=== PATIENT | female | born 1985 | race Caucasian/White ===

== ENCOUNTER 2018-07-23 20:15 | Emergency (ER) | payer SELFPAY ==
--- NOTE | 2018-07-23 21:34 | EDPHYS ---
Physician Documentation [facility] Name: Brianna Armstrong Age: 33 yrs Sex: Female : 1985 Arrival Date: 07/23/2018 Time: 20:18 Bed 12 Private MD: ED Physician Carmelo Arboleda HPI: 07/23 21:40 This 33 yrs old Female presents to ER via Unassigned with complaints of snw Toothache. 21:40 The patient presents with broken tooth/teeth. The problem is located in the lower right snw first molar (#30). Onset: The symptoms/episode began/occurred gradually, and became worse yesterday. Duration: The symptoms are chronic. Associated signs and symptoms: Pertinent positives: pain. Severity of symptoms: At their worst the symptoms were moderate. The patient has not experienced similar symptoms in the past. The patient has not recently seen a physician. Historical: - Allergies: 23:01 PENICILLINS; jl3 - Immunization history:: Adult Immunizations up to date. - Social history:: Smoking status: Patient/guardian denies using tobacco, never smoked, Patient/guardian denies using street drugs, tobacco products. - Ebola Screening: : No symptoms or risks identified at this time. ROS: 21:39 Constitutional: Negative for fever, chills, and weight loss, Eyes: Negative for injury, snw pain, redness, and discharge, ENT: Negative for injury and discharge, + dental pain Neck: Negative for injury, pain, and swelling, Cardiovascular: Negative for chest pain, palpitations, and edema, Respiratory: Negative for shortness of breath, cough, wheezing, and pleuritic chest pain, Abdomen/GI: Negative for abdominal pain, nausea, vomiting, diarrhea, and constipation, Back: Negative for injury and pain, : Negative for injury, bleeding, discharge, and swelling, MS/Extremity: Negative for injury and deformity, Skin: Negative for injury, rash, and discoloration, Neuro: Negative for headache, weakness, numbness, tingling, and seizure. Exam: 21:38 Constitutional: This is a well developed, well nourished patient who is awake, alert, snw and in no acute distress. Head/Face: Normocephalic, atraumatic. Eyes: Pupils equal round and reactive to light, extra-ocular motions intact. Lids and lashes normal. Conjunctiva and sclera are non-icteric and not injected. Cornea within normal limits. Periorbital areas with no swelling, redness, or edema. Neck: Trachea midline, no thyromegaly or masses palpated, and no cervical lymphadenopathy. Supple, full range of motion without nuchal rigidity, or vertebral point tenderness. No Meningismus. Chest/axilla: Normal chest wall appearance and motion. Nontender with no deformity. No lesions are appreciated. Cardiovascular: Regular rate and rhythm with a normal S1 and S2. No gallops, murmurs, or rubs. Normal PMI, no JVD. No pulse deficits. Respiratory: Lungs have equal breath sounds bilaterally, clear to auscultation and percussion. No rales, rhonchi or wheezes noted. No increased work of breathing, no retractions or nasal flaring. Abdomen/GI: Soft, non-tender, with normal bowel sounds. No distension or tympany. No guarding or rebound. No evidence of tenderness throughout. Back: No spinal tenderness. No costovertebral tenderness. Full range of motion. Skin: Warm, dry with normal turgor. Normal color with no rashes, no lesions, and no evidence of cellulitis. MS/ Extremity: Pulses equal, no cyanosis. Neurovascular intact. Full, normal range of motion. Neuro: Awake and alert, GCS 15, oriented to person, place, time, and situation. Cranial nerves II-XII grossly intact. Motor strength 5/5 in all extremities. Sensory grossly intact. Cerebellar exam normal. Normal gait. Psych: Awake, alert, with orientation to person, place and time. Behavior, mood, and affect are within normal limits. 21:38 ENT: External ear(s): are unremarkable, Ear canal(s): are normal, TM's: are normal, Nose: is normal, Mouth: is normal, Posterior pharynx: is normal, Dental exam: dental caries, that is moderate, specifically in the lower right first molar (#30), used dental cement, continued pain. Vital Signs: 23:02 Pulse 78; Resp 18; Pulse Ox 99% ; Pain 0/10; jl3 MDM: 21:23 Patient medically screened. snw 21:37 Data reviewed: vital signs, nurses notes. Data interpreted: Pulse oximetry: on room air snw is 99 %. Interpretation: normal. Counseling: I had a detailed discussion with the patient and/or guardian regarding: the historical points, exam findings, and any diagnostic results supporting the discharge/admit diagnosis, the need for outpatient follow up, to return to the emergency department if symptoms worsen or persist or if there are any questions or concerns that arise at home. Special discussion: Based on the history and exam findings, there is no indication for further emergent testing or inpatient evaluation. I discussed with the patient/guardian the need to see a dentist for further evaluation of the symptoms. I discussed with the patient/guardian the need to see the primary care provider for further evaluation of the symptoms. Administered Medications: 21:50 Drug: Clindamycin 300 mg Route: PO; jl3 22:57 Follow up: Response: No adverse reaction jl3 21:51 Drug: TORadol 60 mg Route: IM; Site: left gluteus; jl3 22:57 Follow up: Response: No adverse reaction; Pain is decreased jl3 Disposition: 07/24 00:39 Co-signature as Attending Physician, Carmelo Arboleda MD. pk Disposition: 07/23/18 21:34 Discharged to Home. Impression: Dental caries on pit and fissure surface. - Condition is Stable. - Discharge Instructions: Dental Caries, Adult, Dental Pain, Dental Extraction, Care After, Preventive Dental Care, Adult. - Prescriptions for chlorhexidine gluconate 0.12 % Mucous Membrane mouthwash - place 15 milliliter by MUCOUS MEMBRANE route 2 times per day after brushing teeth, swish in mouth for 30 seconds then spit out; 480 milliliter. Clindamycin HCl 300 mg Oral Capsule - take 1 capsule by ORAL route every 6 hours for 10 days; 40 capsule. Diclofenac Sodium 75 mg Oral Tablet Sustained Release - take 1 tablet by ORAL route 2 times per day; 30 tablet. - Medication Reconciliation Form, Thank You Letter, Antibiotic Education, Prescription Opioid Use form. Signatures: Carmelo Arboleda MD MD pkl Monique Bennett, OZIEL-C ARMATURE REPAIRER-Patricio Brunson RN RN jl3 Corrections: (The following items were deleted from the chart) 07/23 23:03 21:34 07/23/2018 21:34 Discharged to Home. Impression: Dental caries on pit and fissure jl3 surface. Condition is Stable. Forms are Medication Reconciliation Form, Thank You Letter, Antibiotic Education, Prescription Opioid Use. Follow up: Emergency Department; When: As needed; Reason: Worsening of condition. snw
[2018-07-23] MEDS ORDERED: CLINDAMYCIN HCL 150 MG CAP ONE (21:48)
[2018-07-23] MEDS ORDERED: KETOROLAC 30 MG/ML INJ ONE (21:48)
--- NOTE | 2018-07-23 23:04 | ER ---
Nurse's Notes [facility] Name: Brianna Armstrong Age: 33 yrs Sex: Female : 1985 Arrival Date: 07/23/2018 Time: 20:18 Bed 12 Private MD: Diagnosis: Dental caries on pit and fissure surface Presentation: 07/23 22:59 Presenting complaint: Patient states: Tooth pain, R. side. Transition of care: patient jl3 was not received from another setting of care. Onset of symptoms was July 21, 2018. Risk Assessment: Do you want to hurt yourself or someone else? Patient reports no desire to harm self or others. Initial Sepsis Screen: Does the patient meet any 2 criteria? No. Patient's initial sepsis screen is negative. Does the patient have a suspected source of infection? No. Patient's initial sepsis screen is negative. Care prior to arrival: None. 22:59 Acuity: SKY 5 jl3 22:59 Method Of Arrival: Ambulatory jl3 Historical: - Allergies: 23:01 PENICILLINS; jl3 - Immunization history:: Adult Immunizations up to date. - Social history:: Smoking status: Patient/guardian denies using tobacco, never smoked, Patient/guardian denies using street drugs, tobacco products. - Ebola Screening: : No symptoms or risks identified at this time. Screenin:58 Abuse screen: none noted. Nutritional screening: No deficits noted. Tuberculosis jl3 screening: No symptoms or risk factors identified. Fall Risk None identified. Assessment: 21:51 General: Appears uncomfortable, Behavior is calm, cooperative. Pain: Complains of pain jl3 in right jaw and right cheek. Neuro: No deficits noted. Cardiovascular: No deficits noted. Respiratory: No deficits noted. GI: No deficits noted. : No deficits noted. EENT: Reports pain in right jaw Pain is 10 out of 10 on a pain scale. since Pt states toothache to R. side began 1 day ago, but there was a "hole in that tooth" for a while. Allergic to Amoxicillin. Derm: No deficits noted. Musculoskeletal: No deficits noted. Vital Signs: 23:02 Pulse 78; Resp 18; Pulse Ox 99% ; Pain 0/10; jl3 ED Course: 20:18 Patient arrived in ED. ds1 20:55 Monique Bennett FNP-C is PHCP. snw 20:55 Carmelo Arboleda MD is Attending Physician. snw 21:33 Patricio Bal, RN is Primary Nurse. jl3 23:00 Triage completed. jl3 23:00 Arm band placed on right wrist. jl3 23:00 No provider procedures requiring assistance completed. Patient did not have IV access jl3 during this emergency room visit. 23:03 Patient has correct armband on for positive identification. jl3 Administered Medications: 21:50 Drug: Clindamycin 300 mg Route: PO; jl3 22:57 Follow up: Response: No adverse reaction jl3 21:51 Drug: TORadol 60 mg Route: IM; Site: left gluteus; jl3 22:57 Follow up: Response: No adverse reaction; Pain is decreased jl3 Outcome: 21:34 Discharge ordered by . snw 23:00 Discharged to home ambulatory. jl3 23:00 Condition: stable 23:00 Discharge instructions given to patient, Prescriptions given X 2. 23:03 Patient left the ED. jl3 Signatures: Monique Bennett FNP-C TOP CUTTER-Lolis Vernon ds1 Patricio Bal, RN RN jl3
== END 2018-07-23 23:03 | disposition home or self-care (01) ==
LOC: ER 20:15
DX: K02.52 Dental caries on pit and fissure surface penetrating into dentin (principal)
CPT/HCPCS: 96372; 99283

== ENCOUNTER 2024-02-18 00:47 | Emergency (ER) | payer OTHER, SELFPAY ==
--- OUTSIDE RECORDS SUMMARY | 2024-02-18 00:50 | XMS REPORT | Continuity of Care Document ---
Author Name Unknown Address [address] [facility] [address] [place] [id number] [facility] Address [address] [facility] 1 [address] [place] [address] Care Team Providers Care Rail Splitter Name Role Phone Marvin FAY, [place]aine Primary Care Physician [phone] ELLIE LI Attending Clinician Unavailable Ellie Li MD Attending Clinician Allergies, Adverse Reactions, Alerts Allergy Name Allergy Type Status Severity Reaction(s) Onset Date Inactive Date Treating Clinician Comments Source Amoxicil arianna Propensi ty to adverse reaction s Active Rash 15 00:00: 00 [facility] AMOXICIL ARIANNA DRUG INGREDI Active Rash 5-15 00:00: 00 [facility] Amoxicil arianna - Oral Propensi ty to adverse reaction to drug Active 9-12 00:00: 00 Dheeraj Collins NO KNOWN ALLERGIE S Drug Class Active [facility] Social History Social Habit Start Date Stop Date Quantity Comments Source Sexual orientation [facility] Sex assigned at 1985 00:00:00 1985 00:00:00 [facility] Smoking Status Start Date Stop Date Source Tobacco smoking consumption unknown [facility] Medications Ordered Medication Name Filled Medication Name Start Date Stop Date Current Medication? Ordering Clinician Indication Dosage Frequency Signature (SIG) Comments Components Source levothyroxi ne 75 mcg tablet -15 11:24: 17 Yes 75ug Take 1 tablet by mouth every morning. [facility] levothyroxi ne 75 mcg tablet 4-24 00:00: 00 Yes 1mcg Dheeraj Collins levothyroxi ne 50 mcg capsule 3-06 00:00: 00 Yes 1mcg Dheeraj Collins TAKE 1 TABLET DAILY. 05-25 00:00: 00 12-20 00:00 :00 No 112 Dheeraj Collins TAKE 1 TABLET TWICE DAILY UNTIL FINISHED. 05-13 00:00: 00 12-20 00:00 :00 No 500 Dheeraj Collins Vital Signs Vital Name Observation Time Observation Value Comments S ource Systolic blood pressure 2024-01-11 16:23:00 112 mm[Hg] [place] [facility] Diastolic blood pressure 2024-01-11 16:23:00 79 mm[Hg] [facility] Heart rate 2024-01-11 16:23:00 64 /min [facility] Respiratory rate 2024-01-11 16:23:00 16 /min [facility] Body height 2024-01-11 16:23:00 157.5 cm [facility] Body weight 2024-01-11 16:23:00 68.493 kg [facility] BMI 2024-01-11 16:23:00 27.62 kg/m2 [facility] Oxygen saturation in Arterial blood by Pulse oximetry 2024-01-11 16:23:00 100 /min [facility] BP Systolic 2023-12-21 09:11:00 120 mm[Hg] Step hen Britney Collins BP Diastolic 2023-12-21 09:11:00 80 mm[Hg] Renato phen Britney Collins Weight Measured 2023-12-21 09:11:00 155.00 pounds Dheeraj Collins Height Measured 2023-12-21 09:11:00 63.00 inches Dheeraj Collins Body Temperature 2023-12-21 09:11:00 97.50 degrees Dheeraj Collins Heart Rate 2023-12-21 09:11:00 81.00 /min Valery en F Dennis Respiratory Rate 2023-12-21 09:11:00 18.00 /min Dheeraj Collins BP Systolic 2023-11-02 15:03:00 120 mm[Hg] Step hen Britney Collins BP Diastolic 2023-11-02 15:03:00 70 mm[Hg] Renato phen Britney Collins Weight Measured 2023-11-02 15:03:00 154.00 pounds Dheeraj F Dennis Height Measured 2023-11-02 15:03:00 63.00 inches Dheeraj F Dennis Body Temperature 2023-11-02 15:03:00 97.90 degrees Dheeraj F Dennis Heart Rate 2023-11-02 15:03:00 90.00 /min Valery en F Dennis Respiratory Rate 2023-11-02 15:03:00 16.00 /min Dheeraj F Dennis BP Systolic 2023-06-24 17:29:00 Step hen F Dennis BP Diastolic 2023-06-24 17:29:00 Renato phen F Dennis Weight Measured 2023-06-24 17:29:00 Dheeraj F Dennis Height Measured 2023-06-24 17:29:00 63.00 inches Dheeraj F Dennis Body Temperature 2023-06-24 17:29:00 Dheeraj F Dennis Heart Rate 2023-06-24 17:29:00 Valery en F Dennis Respiratory Rate 2023-06-24 17:29:00 Dheeraj F Dennis Weight Measured 2023-05-13 09:00:00 160.80 pounds Dheeraj F Dennis Height Measured 2023-05-13 09:00:00 63.00 inches Dheeraj F Dennis Body Temperature 2023-05-13 09:00:00 98.20 degrees Dheeraj F Dennis Heart Rate 2023-05-13 09:00:00 94.00 /min Valery en F Dennis Respiratory Rate 2023-05-13 09:00:00 Dheeraj F Dennis BP Systolic 2023-05-13 09:00:00 123 mm[Hg] Step hen F Dennis BP Diastolic 2023-05-13 09:00:00 85 mm[Hg] Renato phen F Dennis BP Systolic 2023-05-10 09:19:00 124 mm[Hg] Step hen F Dennis BP Diastolic 2023-05-10 09:19:00 89 mm[Hg] Renato phen F Dennis Weight Measured 2023-05-10 09:19:00 159.00 pounds Hdeeraj F Dennis Height Measured 2023-05-10 09:19:00 63.00 inches Dheeraj F Dennis Body Temperature 2023-05-10 09:19:00 98.10 degrees Dheeraj F Dennis Heart Rate 2023-05-10 09:19:00 91.00 /min Valery en F Dennis Respiratory Rate 2023-05-10 09:19:00 18.00 /min Dheeraj Collins Encounters Start Date/Time End Date/Time Encounter Type Admission Type Attending [facility] Care Department Encounter ID Source 2024-05-15 10:30:00 2024-05-15 10:30:00 Outpatient R [facility] [id number] [facility] 2024-02-13 00:00:00 2024-02-13 14:49:22 [facility] [id number] [id number] [facility] 2024-01-11 11:30:00 2024-01-11 12:27:41 Outpatient R LI [facility] [id number] [facility] 2024-01-11 11:30:00 2024-01-11 12:27:41 Office Visit [facility] [place] [facility] [id number] [id number] [id number] [facility] 2023-12-21 09:09:01 2023-12-21 09:09:01 Outpatient [facility] [id number] Dheeraj Collins 2023-12-21 00:00:00 2023-12-21 00:00:00 Outpatient Visit [facility] [id number] Dheeraj Collins 2023-12-14 08:17:12 2023-12-14 08:17:12 Outpatient [facility] [id number] Dheeraj Collins 2023-11-02 15:02:45 2023-11-02 15:02:45 Outpatient [facility] [id number] Dheeraj Collins 2023-06-27 15:48:46 2023-06-27 15:48:46 Outpatient [facility] [id number] Dheeraj Collins 2023-06-24 17:39:31 2023-06-24 17:39:31 Outpatient [facility] [id number] Dheeraj Collins 2023-05-13 08:54:57 2023-05-13 08:54:57 Outpatient [facility] [id number] Dheeraj Collins 2023-05-10 08:58:23 2023-05-10 08:58:23 Outpatient [facility] [id number] Dheeraj Collins Results Test Description Test Time Test Comments Results Result Co mments Source Dheeraj CollinsTHYROID ANTIBODY GROUP (TPO + TG)2023-12-15 00:00:00* Test Item Value Reference Range Interpretation Comme nts THYROID PEROXIDASE AB (test code = 38331) 410 IU/ML THYROGLOBULIN AB (test code = 225508) 513 IU/ML Dheeraj CollinsTHYROID II PROFILE (TU, T4, T7, TSH)2023-06-28 00:00:00* Test Item Value Reference Range Interpretation Comme nts T-UPTAKE (test code = 2817) 39.0 % THYROX. BIND. CAPAC. (test c ode = 02519) 0.8 T4 (THYROXINE) (test code = 2819) 17.1 UG/DL CORRECTED T4 (FTI) (test cod e = 2820) 21.4 UG/DL TSH, THIRD GENERATION (test code = 2821) 0.021 UIU/ML [facility] [id number] 00:00:00* Test Item Value Reference Range Interpretation Comme nts TSH RFLX FT4 AND FT3 (test c ode = 96060) 0.021 UIU/ML [facility] T3 [REFLEX]2023-06-28 00:00:00* Test Item Value Reference Range Interpretation Comme nts FREE T3 (test code = 4273) 6.8 PG/ML Dheeraj CollinsFREE T4 (THYROXINE) [REFLEX]2023-06-28 00:00:00* Test Item Value Reference Range Interpretation Comme nts FREE T4 (THYROXINE) (test co de = 2823) 2.68 NG/DL [facility] R[facility] FT4 AND [id number] 00:00:00* Test Item Value Reference Range Interpretation Comme nts TSH RFLX FT4 AND FT3 (test c ode = 25411) 9.710 UIU/ML Dheeraj CollinsTSH, THIRD [id number] 00:00:00* Test Item Value Reference Range Interpretation Comme nts TSH, THIRD GENERATION (test code = 2821) 9.710 UIU/ML Dheeraj Tan AustinFREE T3 [REFLEX]2023-05-14 00:00:00* Test Item Value Reference Range Interpretation Comme nts FREE T3 (test code = 4273) 2.6 PG/ML Dheeraj Tan OxfordFREE T4 (THYROXINE) [REFLEX]2023-05-14 00:00:00* Test Item Value Reference Range Interpretation Comme nts FREE T4 (THYROXINE) (test co de = 2823) 0.77 NG/DL Dheeraj CollinsPAP TEST, THINPREP, [id number] 16:02:20* Test Item Value Reference Range Interpretation Comme nts SOURCE: (test code = 8001) Cervical/Endoce rvical SLIDES: (test code = 8011) 2 LMP: (test code = 8021) 04/19/2023 SPECIMEN ADEQUACY: (test code = 08174) (NOTE) Satisfactory for evaluation. Endocervical cells/transformation zone component present. INTERPRETATION: (test code = 33676) NILM/NO EPITH. ABNORMALITY;SEE BELOW --- - NEGATIVE FOR INTRAEPITHELIAL LESION OR MALIGNANCY (NILM) ---- OTHER COMMENTS: (test code = 8081) (NOTE) Trichomonas vagi nalis present. Glacial acetic acid added due to blood/mucus in specimen. CHEMICAL MILLING PROCESSOR : (test code = 8101) JUAN Bunch(ASC P),IAC QC TECHNOLOGIST: (test code = 8111) ADY Lu(ASCP) IAC LOCATION: (test code = 10723) (NOTE) Specimens proces sed and interpreted at [facility], [address] [place] [address], , CLIA: [id number] CPT: (test code = 8140) (NOTE) [address]2673 UNLESS OTH ERWISE INDICATED, COMPUTER AIDED AND CHEMICAL MILLING PROCESSOR SCREENING PERFORMED. The Pap test is a screening test with an inherent, but low probability of error. Your patient should be reminded to consult you immediately if she experiences any suspicious signs or symptoms, regardless of her Pap test result. An alternate report format containing images or consolidated prior Pap history is available as applicable. PAP TEST, THINPREP, [id number] 00:00:00* Test Item Value Reference Range Interpretation Comme nts SOURCE: (test code = 8001) Cervical/Endocervical SLIDES: (test code = 8011) 2 LMP: (test code = 8021) 04/19/2023 SPECIMEN ADEQUACY: (test code = 07253) (NOTE) INTERPRETATION: (test code = 89777) NILM/NO EPITH. ABNORMALITY;SEE BELOW OTHER COMMENTS: (test code = 8081) (NOTE) CHEMICAL MILLING PROCESSOR: (test code = 8101) JUAN Bunch(ASCP),IAC QC TECHNOLOGIST: (test code = 8111) ADY Lu(ASCP)IAC LOCATION: (test code = 07968) (NOTE) CPT: (test code = 8140) (NOTE) Dheeraj CollinsTRICHOMONAS, NAAT, [id number] 16:41:37* Test Item Value Reference Range Interpretation Comme nts TRICHOMONAS, NAAT, URINE (test code = 39587) POSITIVE NEGATIVE A Testing is perfo rmed with Sea ANASTASIA 6800/8800 method usingreal-time polymerase chain reaction (PCR) method. UNLESS OTHERWISE INDICATED, ALL TESTING PERFORMED AT [facility] [address] [place] [address] INVESTMENT SALES ASSISTANT: ALLIE QUINTEROS M.D. CLIA NUMBER [id number] [place]. [id number] CT/NG, NAAT, [id number] 13:50:17* Test Item Value Reference Range Interpretation Comme nts CHLAMYDIA, NAAT, URINE (test code = 16529) NEGATIVE NEGATIVE Testing is perfo rmed with Sea ANASTASIA 6800/8800 systems usingreal-time polymerase chain reaction (PCR) method. A negative result does not exclude low level infection, specimensampling error, or collection error. GONORRHEA, NAAT, URINE (test code = 05450) NEGATIVE NEGATIVE Testing is perfo rmed with Sea ANASTASIA 6800/8800 systems usingreal-time polymerase chain reaction (PCR) method. A negative result does not exclude low level infection, specimensampling error, or collection error. HPV HIGH RISK WITH GENOTYPE, [id number] 13:19:23* Test Item Value Reference Range Interpretation Comme nts HPV HIGH RISK INTERP (test code = 56640) NEGATIVE NEGATIVE HPV 16 (test code = 68350) NEGATIVE HPV 18 (test code = 54671) NEGATIVE HPV, HR, OTHER GENOTYPES (test code = 42676) NEGATIVE Testing methodol ogy is real-time PCR utilizing hydrolysis probes with the Sea Anastasia 4800 system. The test individually detects genotypes 16 and 18, as well as the other 12 high risk types (31,33,35,39,45,51,52,56 ,58,59,66,68). The expected result is negative. A negative result does not rule out the presence of HPV not included in the genotype set, a low level of infection or specimen sampling error. UNLESS OTHERWISE INDICATED, ALL TESTING PERFORMED AT [facility] [address] [place] [address] INVESTMENT SALES ASSISTANT: ALLIE QUINTEROS M.D. CLIA NUMBER [id number] [facility] [place]. [id number] VAGINAL PATHOGENS DNA [id number] 12:24:57* Test Item Value Reference Range Interpretation Comme nts CATE SPECIES (test code = 28359) NEGATIVE NEGATIVE G. VAGINALIS (test code = 82270) POSITIVE NEGATIVE A T. VAGINALIS (test code = 04122) POSITIVE NEGATIVE A Note: The BD [facility] ir VPIII Microbial Identification Testis a DNA probe test intended for use in the detectionand identification of Cate species, Gardnerellavaginalis and Trichomonas vaginalis nucleic acid. [id number] 04:55:01* Test Item Value Reference Range Interpretation Comme nts RPR RESULT (test code = 3501) NON-REACTIVE NON-REACTIVE RPR TITER (test code = 3500) NOT INDIC. TITER NOT INDIC. HIV 1/2 4TH GEN, RFLX [id number] 04:20:34* Test Item Value Reference Range Interpretation Comme nts HIV 1/2 4TH GEN, RFLX CONF ( test code = 3514) NON-REACTIVE NON-REACTIVE HEPATITIS PANEL, [id number] 04:20:34* Test Item Value Reference Range Interpretation Comme nts HEPATITIS A IgM (test code = 48752) NON-REACTIVE NON-REACTIVE HEPATITIS B CORE IgM (test code = 4644) NON-REACTIVE NON-REACTIVE HEPATITIS B SURF AG (test code = 2739) NON-REACTIVE NON-REACTIVE HEPATITIS C ANTIBODY (test code = 4675) NON-REACTIVE NON-REACTIVE INTERPRETATION HEPATITIS A: (test code = 2552) (NOTE) Hepatitis A serology shows no evidence of acute hepatitis A. INTERPRETATION HEPATITIS B: (test code = 58727) (NOTE) Hepatitis B serology shows no evidence of acute hepatitis B andno indication of exposure to hepatitis B virus in the previous feliberto eight months. INTERPRETATION HEPATITIS C: (test code = 51501) (NOTE) Hepatitis C serology shows no evidence of exposure to hepatitisC virus at this time. It can take up to 12 months after exposure tothe hepatitis C virus for antibodies to become detectable in the blood in certain patients. HIV 1/2 4TH GEN, RFLX [id number] 00:00:00* Test Item Value Reference Range Interpretation Comme nts HIV 1/2 4TH GEN, RFLX CONF ( test code = 3514) NON-REACTIVE Dheeraj [id number] 00:00:00* Test Item Value Reference Range Interpretation Comme nts RPR RESULT (test code = 3501) NON-REACTIVE RPR TITER (test code = 3500) NOT INDIC. TITER Dheeraj Tan AustinHPV HIGH RISK WITH GENOTYPE, [id number] 00:00:00* Test Item Value Reference Range Interpretation Comme nts HPV HIGH RISK INTERP (test c ode = 40904) NEGATIVE HPV 16 (test code = 11623) NEGATIVE HPV 18 (test code = 27370) NEGATIVE HPV, HR, OTHER GENOTYPES (te st code = 23084) NEGATIVE PDFE (test code = PDFReport) PDF Dheeraj CollinsVAGINAL PATHOGENS DNA [id number] 00:00:00* Test Item Value Reference Range Interpretation Comme nts CATE SPECIES (test code = 50724) NEGATIVE G. VAGINALIS (test code = 01170) POSITIVE T. VAGINALIS (test code = 07084) POSITIVE Dheeraj CollinsACUTE HEPATITIS [id number] 00:00:00* Test Item Value Reference Range Interpretation Comme nts HEPATITIS A IgM (test code = 45621) NON-REACTIVE HEPATITIS B CORE IgM (test c ode = 4644) NON-REACTIVE HEPATITIS B SURF AG (test co de = 2739) NON-REACTIVE HEPATITIS C ANTIBODY (test c ode = 4675) NON-REACTIVE INTERPRETATION HEPATITIS A: (test code = 2552) (NOTE) INTERPRETATION HEPATITIS B: (test code = 37110) (NOTE) INTERPRETATION HEPATITIS C: (test code = 83241) (NOTE) Dheeraj CollinsCT/NG, TMA, [id number] 00:00:00* Test Item Value Reference Range Interpretation Comme nts CHLAMYDIA, NAAT, URINE (test code = 56238) NEGATIVE GONORRHEA, NAAT, URINE (test code = 27321) NEGATIVE Dheeraj CollinsTRICHOMONAS, NAAT, URINE [ADDED]2023-05-11 00:00:00* Test Item Value Reference Range Interpretation Comme nts TRICHOMONAS, NAAT, URINE (te st code = 49439) POSITIVE Dheeraj Collins Notes Date/Time Note Provider Source 2024-02-13 14:49:16 2457-47-49L44:49:16 Awaiting forms 61375-7Pqdkjngfv encounter [id number]:49:22Telephone encounter NoteTXT1.2.840.487899.1.13.104.2.7. 2.161516|[id number] for patient zqxk37086-7TzqlOVKIASXNTKRSpvhofmqk C-CDA narrative [id number] Hurst RNUT[id number] 8UWGKUEMCHOTLCTKAATNPIY2737-65-25N4 4:49:221.2.840.617339.1.72.3.15|1.2 .840.054629.1.13.104.2.7.2.727879_2 [id number] Chato Hurst RN [facility] 2024-02-13 13:34:01 7782-21-72A42:34:01 Pt states that [facility] has faxed forms to the office, regarding additional information to schedule an Ultrasound of the Thyroid. Pt is calling to check the status of this being received and completed. Pls advise. 89844-9Hoevulsdq encounter FlmcTA0102-35-33O68:38:19Telephone encounter NoteTXT1.2.840.977397.1.13.104.2.7. 2.389572|[id number] for patient tdyo97561-9BjtkSURZXMDGMIIOqmfkdtzm C-CDA narrative textUT31 Pierce [id number] 0LNLSMVIZDTNVWBVHZYBFQY3941-97-97C8 3:38:191.2.840.729560.1.72.3.15|1.2 .840.679305.1.13.104.2.7.2.727879_2 [id number] [facility] 2024-01-11 11:30:00 7098-94-51S99:30:00Addended by: ELLIE LI MD on: 02/10/2024 12:43 AMModules accepted: Level of Service 32566-7Zeopopgo SgehzcuwFS6201-58-54I42:43:33Addend um DocumentTXT1.2.840.378665.1.13.104. 2.7.2.392414|[id number] for patient tuuc94486-5YdktOFMJZXNHVODJatzlxhak C-CDA narrative text[address] Je[id number] 1ASVXZLWMMFZYCQKVODMKIG8714-92-06H5 0:43:331.2.840.120416.1.72.3.15|1.2 .840.494400.1.13.104.2.7.2.727879_2 [id number] [facility] 2023-12-21 00:00:00 u/2Yl61zooWGIyG5oPK+vxW0iMlSakxaa82 Nsrj+jYINoS56Mp1Pz7FjVw4rhFkv7912-0 12-20T00:00:00+ + --+| Plan Activity | Plan Date |+ + +| GET OUTSIDE AND WALK- STAY ACTIVE | 2023-05-10 || Diet AND EXERCISE WORK TOGETHER - WALK, SHOP, GO TO THE PARK, GET OUT OF THE | || HOUSE EVERYDAY | |+ + +| Recommend diet high in fruits and vegetables, lean meats, low in fat and | 2023-05-10 || processed sugars. Monitor portion size | |+ + +| Well woman exam without gynecological portion - that was completed a year ago | 2023-05-10 || You can take charge of your health by staying current on well-care visits, | || screenings, and immunizations. Our goal is to help you live a healthier and | || happier life through preventive care. | || Recommend annual blood work: Complete Blood Count, Comprehensive metabolic | || panel, fasting lipid panel and TSH. | || Recommend a Tetanus-diphtheria every 10 years and a Flu vaccine every year | || unless it is contraindicated. | || HIV test one time during adulthood (through age 64) | || Take a daily multivitamin | || Occasionally check your blood pressure and notify the clinic if your blood | || pressure is over 140/80 or lower than 80/60. | || Schedule annual examination | || STD testing | |+ + +| STI panel today in clinic: | 2023-05-10 || Gonorrhea | || Chlamydia | || Trichomoniasis | || Plan pending lab results | || Safe sex education provided | |+ + +| Labs: TSH, Free T3, T4 today | 2023-05-13 || Plan pending results | |+ + +| Positive | 2023-05-13 || Flagyl 500 mg BID x 7 days | || Safe sex practices discussed | |+ + +| BV disease progression education given | 2023-05-13 || Discussed medication usage and side effects | || Start Flagyl 500mg PO BID x 7 days | || Medication sent to the pharmacy | || Patient verbalized understanding of treatment plan | |+ + +| [facility] | 2023-11-02 || diet and exercise | |+ + +| TSH 0.021was on last visit now 11TSH for (12-14-2023) on Levoxyl 50mcg | 2023-11-02 || Levothyroxine 75mcg 1 tab po in AM by itelf with a sip of water | || TPO antibody meam403 - refer Furnace [employer] - JASSI Chavez | || She needs U/S but they want to do their on u/s and labs and will redo any and | || all tests | || f/u 6 week for labs and 7 week for provider u/s of thyroid - no insurance now | |+ + +| get thyroid fixed pulse 81 an this is not of immediate concern and will be | 2023-12-21 || treated when the thyroid is treated | |+ + +63528-6Gw an of TreatmentLNCARE PLANTXTS|SOC-[id number]|2.16.840.1.1 39017.10.20.22.2.10AVAvailable for patient zyitMspxqkvSbaivxuvkFDVXm66 Section NarrativeNARRATIVEFormatted C-CDA narrative textSFAStPrime Healthcare Services2024-04-24T00:00:00 [facility]"
[2024-02-18] MEDS ORDERED: methocarbamoL 750 MG TAB ONE (01:32)
[2024-02-18] MEDS ORDERED: KETOROLAC 30 MG/ML INJ ONE (01:32)
[2024-02-18] MEDS ORDERED: HYDROCODONE/APAP 10/325 TAB ONE (01:32)
[2024-02-18 02:18] LABS: Specific Gravity 1.017 (1.005-1.030)
--- NOTE | 2024-02-18 04:16 | ER ---
Nurse's Notes [facility] Name: Brianna Armstrong Age: 38 yrs Sex: Female : 1985 Arrival Date: 02/18/2024 Time: 00:47 Bed 19 Private MD: Diagnosis: Radiculopathy, cervical region;left arm neuropathic pain Presentation: 02/17 01:14 Chief complaint: Patient states: sharp pain shooting down left side of neck to left vc1 shoulder x 2 weeks. Coronavirus screen: Client denies travel out of the [place] in the last 14 days. At this time, the client does not indicate any symptoms associated with coronavirus-19. Ebola Screen: Patient negative for fever greater than or equal to 101.5 degrees Fahrenheit, and additional compatible Ebola Virus Disease symptoms Patient denies exposure to infectious person. Patient denies travel to an Ebola-affected area in the 21 days before illness onset. No symptoms or risks identified at this time. Initial Sepsis Screen: Does the patient meet any 2 criteria? No. Patient's initial sepsis screen is negative. Does the patient have a suspected source of infection? No. Patient's initial sepsis screen is negative. Risk Assessment: Do you want to hurt yourself or someone else? Patient reports no desire to harm self or others. Onset of symptoms is unknown. 01:14 Method Of Arrival: Ambulatory vc1 01:14 Acuity: SKY 3 vc1 Triage Assessment: 01:20 General: Appears in no apparent distress. uncomfortable, well groomed, well developed, vc1 Behavior is calm, cooperative, appropriate for age. Pain: Complains of pain in left sternocleidomastoid Pain radiates to anterior aspect of left shoulder and left bicep Pain currently is 6 out of 10 on a pain scale. at worst was 8 out of 10 on a pain scale. Quality of pain is described as sharp, shooting, Pain began 2 weeks. EENT: No deficits noted. No signs and/or symptoms were reported regarding the EENT system. Neuro: Level of Consciousness is awake, alert, obeys commands, Oriented to person, place, time, situation, Appropriate for age. Cardiovascular: Capillary refill < 3 seconds Patient's skin is warm and dry. Respiratory: Airway is patent Respiratory effort is even, unlabored, Respiratory pattern is regular, symmetrical. Derm: Skin is intact, is healthy with good turgor, Skin is dry, Skin is normal, Skin temperature is warm. Musculoskeletal: Reports pain in left sternocleidomastoid. 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 Flu vaccine is not up to date. - Infectious Disease History:: Denies. - Social history:: Smoking status: Reported history of juuling and/or vaping. - Family history:: not pertinent. Screenin:30 [facility] ED Fall Risk Assessment (Adult) History of falling in the last 3 months, tm6 including since admission No falls in past 3 months (0 pts) Confusion or Disorientation No (0 pts) Intoxicated or Sedated No (0 pts) Impaired Gait No (0 pts) Mobility Assist Device Used No (0 pt) Altered Elimination No (0 pt) Score/Fall Risk Level 0 - 2 = Low Risk Oriented to surroundings, Maintained a safe environment, Educated pt \T\ family on fall prevention, incl call for assistance when getting out of bed. Abuse screen: Denies threats or abuse. Denies injuries from another. Nutritional screening: No deficits noted. Tuberculosis screening: No symptoms or risk factors identified. Assessment: :30 General: Appears in no apparent distress. uncomfortable, Behavior is calm, cooperative. tm6 Pain: Complains of pain in left arm and neck and left sternocleidomastoid Pain currently is 4 out of 10 on a pain scale. Quality of pain is described as aching, sharp. Neuro: Level of Consciousness is awake, alert, obeys commands, Oriented to person, place, time, situation. Cardiovascular: No deficits noted. Patient's skin is warm and dry. Respiratory: No deficits noted. Airway is patent Respiratory effort is even, unlabored, Respiratory pattern is regular, symmetrical. GI: No signs and/or symptoms were reported involving the gastrointestinal system. Abdomen is flat, non-distended. : No signs and/or symptoms were reported regarding the genitourinary system. EENT: No signs and/or symptoms were reported regarding the EENT system. Derm: No signs and/or symptoms reported regarding the dermatologic system. Musculoskeletal: Reports pain in neck and left sternocleidomastoid since x2 weeks. 04:34 Reassessment: No changes from previously documented assessment. Patient is alert, tm6 oriented x 3, equal unlabored respirations, skin warm/dry/pink. Vital Signs: 01:14 BP 127 / 84; Pulse 69; Resp 18; Temp 97; Pulse Ox 100% ; Weight 68.04 kg; Height 5 ft. vc1 2 in. ; Pain 6/10; 02:51 BP 132 / 107; Pulse 74; Pulse Ox 97% on R/A; Pain 4/10; tm6 04:32 BP 124 / 94; Pulse 61; Resp 19; Temp 96.9(TE); Pulse Ox 100% on R/A; Pain 2/10; tm6 01:14 Body Mass Index 27.44 (68.04 kg, 157.48 cm) vc1 01:14 Pain Scale: Adult vc1 02:51 Pain Scale: Adult tm6 04:32 Pain Scale: Adult tm6 Karmen Coma Score: 04:21 Eye Response: spontaneous(4). Motor Response: obeys commands(6). Verbal Response: sp4 oriented(5). Total: 15. NIH Stroke Scale Scores: 04:21 NIHSS Score: 0 sp4 ED Course: 00:59 Patient arrived in ED. gm2 01:03 Nathan Wahl MD is Attending Physician. sp4 01:17 Triage completed. vc1 01:19 Arm band placed on right wrist. vc1 01:30 Ronit Lyles RN is Primary Nurse. vc1 01:30 Patient has correct armband on for positive identification. Bed in low position. Call tm6 light in reach. Side rails up X 1. Provided Education on: use of call booker, wait times . Client placed on continuous cardiac and pulse oximetry monitoring. NIBP monitoring applied. Pulse ox on. NIBP on. Door closed. Noise minimized. 02:04 CT C Spine In Process Unspecified. EDMS 04:34 No provider procedures requiring assistance completed. Patient did not have IV access tm6 during this emergency room visit. Administered Medications: 01:47 Drug: [place] PO 10 mg-325 mg 1 tabs PO once Route: PO; tm6 01:47 Drug: Methocarbamol PO 1500 mg PO once Route: PO; tm6 01:47 Drug: Ketorolac IM 60 mg IM once Route: IM; Site: right deltoid; tm6 04:32 Drug: predniSONE PO 60 mg PO once Route: PO; tm6 Medication: 01:30 VIS not applicable for this client. tm6 Outcome: 04:16 Discharge ordered by . sp4 04:34 Discharged to home ambulatory, with family, tm6 04:34 Condition: stable 04:34 Discharge instructions given to patient, family, Instructed on discharge instructions, follow up and referral plans. medication usage, Demonstrated understanding of instructions, follow-up care, medications, Prescriptions given X 4, 04:34 Patient left the ED. tm6 NIH Stroke Scale - NIH Stroke Score Date: 02/18/2024 Time: 04:21 Total Score = 0 10. Dysarthria (speech clarity - read or repeat words) - 0(Normal) 11. Extinction and Inattention (visual/tactile/auditory/spatial/personal) - 0(No abnormality) 1a. Level of Consciousness (LOC) - 0(Alert) 1b. Level of Consciousness (LOC) (Month \T\ Age) - 0(Both) 1c. LOC Commands (Open \T\ Closes Eyes/Sash Repairer) - 0(Both) 2. Best Gaze (Lateral Gaze Paresis) - 0(Normal) 3. Visual Field Loss - 0(No visual loss) 4. Facial Palsy - 0(Normal) 5a. Left Arm: Motor (10-second hold) - 0(No drift) 5b. Right Arm: Motor (10-second hold) - 0(No drift) 6a. Left Leg: Motor (5-second hold - always test supine) - 0(No drift) 6b. Right Leg: Motor (5-second hold - always test supine) - 0(No drift) 7. Limb Ataxia (finger/nose \T\ heel/cox - test with eyes open) - 0(Absent) 8. Sensory Loss (pinprick arms/legs/face) - 0(Normal) 9. Best Language: Aphasia (description/naming/reading) - 0(No aphasia) Initials: sp4 Signatures: Dispatcher [employer] EDMS Ronit Lyles RN RN vc1 Nathan Wahl MD MD sp4 Pili Eddy gm2 Wilian Sommer, TARA RN tm6
--- NOTE | 2024-02-18 04:16 | EDPHYS ---
Physician Documentation [facility] Name: Brianna Armstrong Age: 38 yrs Sex: Female : 1985 Arrival Date: 02/18/2024 Time: 00:47 Bed 19 Private MD: ED Physician Nathan Wahl HPI: 02/17 01:03 This 38 yrs old Other Race Female presents to ER via Unassigned with complaints of sp4 Shoulder Pain. 04:21 38-year-old female presents with 2 weeks of the left shoulder left arm and left neck sp4 pain . There is some reported numbness to the posterior left arm. . Patient denied any injury. Denies repetitive arm movements for. . 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 Flu vaccine is not up to date. - Infectious Disease History:: Denies. - Social history:: Smoking status: Reported history of juuling and/or vaping. - Family history:: not pertinent. ROS: 04:21 Constitutional: Negative for fever, chills, and weight loss, positive left neck pain sp4 left arm pain left shoulder pain. Positive posterior left arm numbness. 04:21 All other systems are negative, Exam: 04:21 Constitutional: This is a well developed, well nourished patient who is awake, alert, sp4 and in no acute distress. Head/Face: Normocephalic, atraumatic. Eyes: Pupils equal round and reactive to light, extra-ocular motions intact. Lids and lashes normal. Conjunctiva and sclera are not injected. Cornea within normal limits. Periorbital areas with no swelling, redness, or edema. ENT: Nares patent. No nasal discharge, no septal abnormalities noted. Tympanic membranes are normal and external auditory canals are clear. Oropharynx with no redness, swelling, or masses, exudates, or evidence of obstruction, uvula midline. Mucous membranes moist. Neck: Trachea midline, no thyromegaly or masses palpated, and no cervical lymphadenopathy. Supple, full range of motion without nuchal rigidity, or vertebral point tenderness. Chest/axilla: Normal chest wall appearance and motion. Nontender with no deformity. No lesions are appreciated. Cardiovascular: Regular rate and rhythm with a normal S1 and S2. No gallops, murmurs, or rubs. Normal PMI, no JVD. No pulse deficits. Respiratory: Lungs have equal breath sounds bilaterally, clear to auscultation and percussion. No rales, rhonchi or wheezes noted. No increased work of breathing, no retractions or nasal flaring. Abdomen/GI: Soft, with normal bowel sounds. No distension or tympany. No guarding or rebound. No evidence of tenderness throughout. Back: No spinal tenderness. No costovertebral tenderness. Skin: Warm, dry with normal turgor. Normal color with no rashes, no lesions, and no evidence of cellulitis. MS/ Extremity: Pulses equal, no cyanosis. Neurovascular intact. Full, normal range of motion. Neuro: Awake and alert, GCS 15, oriented to person, place, time, and situation. Cranial nerves II-XII grossly intact. Motor strength 5/5 in all extremities. Sensory grossly intact. Psych: Awake, alert, with orientation to person, place and time. Behavior, mood, and affect are within normal limits Vital Signs: 01:14 BP 127 / 84; Pulse 69; Resp 18; Temp 97; Pulse Ox 100% ; Weight 68.04 kg; Height 5 ft. vc1 2 in. ; Pain 6/10; 02:51 BP 132 / 107; Pulse 74; Pulse Ox 97% on R/A; Pain 4/10; tm6 04:32 BP 124 / 94; Pulse 61; Resp 19; Temp 96.9(TE); Pulse Ox 100% on R/A; Pain 2/10; tm6 01:14 Body Mass Index 27.44 (68.04 kg, 157.48 cm) vc1 01:14 Pain Scale: Adult vc1 02:51 Pain Scale: Adult tm6 04:32 Pain Scale: Adult tm6 NIH Stroke Scale Scores: 04:21 NIHSS Score: 0 sp4 Karmen Coma Score: 04:21 Eye Response: spontaneous(4). Motor Response: obeys commands(6). Verbal Response: sp4 oriented(5). Total: 15. MDM: 01:04 Patient medically screened. sp4 04:13 ED course: EXAM DESCRIPTION: C Spine Wo Con 02/18/2024 3:12 AM CDT CLINICAL HISTORY: 38 sp4 years, Female, left arm pain , neck pain COMPARISON: None PROCEDURE: Multiple axial CT images through the cervical spine were obtained at 2 mm slice thickness at 2 mm interval reconstruction. In addition 2-D multiplanar reformats and the sagittal coronal plane were performed and reviewed. An individualized dose optimization technique, Automated Exposure Control, was utilized for the performed procedure. FINDINGS: Curvature: The lordotic curve is preserved. The alignment, vertebral body heights, and disc spaces are normal. Bones: There is no evidence of fracture or subluxation. Discs: There are no significant degenerative changes and/or spondylosis. There is no evidence for significant spinal canal narrowing and/or stenosis. Joints: The uncovertebral joints demonstrate unremarkable. Soft tissues: There is no prevertebral soft tissue swelling. Sagittal coronal reformatted images demonstrate no subluxation or bony abnormalities. Lung apices: The lung apices demonstrate to be within normal limits. IMPRESSION: Normal CT scan of the cervical spine. Electronically signed by: Patricio Virk MD 02/18/2024 03:12 AM. 04:25 Differential diagnosis: glenoid fracture, DJD, tendonitis. Data reviewed: vital signs, sp4 nurses notes, radiologic studies, CT scan. ED course: By exam patient has intensification for pain with neck movement. Is consistent with cervical radiculopathy without left arm weakness. This time patient is stable for discharge home. Recommend outpatient C-spine MRI without contrast which can be ordered by green chain puller. Will also provide contact for neurosurgeon in [place] Dr. Roberto Rios for consultation and office visit. . 02/17 01:04 Order name: Test, Urine sp4 02/17 01:23 Order name: CT C Spine sp4 Administered Medications: :47 Drug: [place] PO 10 mg-325 mg 1 tabs PO once Route: PO; tm6 01:47 Drug: Methocarbamol PO 1500 mg PO once Route: PO; tm6 01:47 Drug: Ketorolac IM 60 mg IM once Route: IM; Site: right deltoid; tm6 04:32 Drug: predniSONE PO 60 mg PO once Route: PO; tm6 Disposition Summary: 02/18/24 04:16 Discharge Ordered Notes: Location: Home sp4 Problem: new sp4 Symptoms: have improved sp4 Condition: Stable sp4 Diagnosis - Radiculopathy, cervical region sp4 - left arm neuropathic pain sp4 Followup: sp4 - With: Private Physician - When: 7 - 10 days - Reason: Recheck today's complaints Discharge Instructions: - Discharge Summary Sheet sp4 - Cervical Radiculopathy sp4 Forms: - Patient Portal Instructions sp4 Prescriptions: - naproxen 500 mg Oral tablet - take 1 tablet ORAL route every 12 hours PRN pain; 30 tablet; Refills: 0, sp4 Product Selection Permitted - Tramadol 50 mg Oral tablet - take 1 tablet ORAL route every 8 hours as needed; 20 tablet; Refills: 0, sp4 Product Selection Permitted - Prednisone 20 mg Oral Tablet - take 2 tablets ORAL route once daily for 5 days; 10 tablet; Refills: 0, Product sp4 Selection Permitted - methocarbamol 750 mg Oral tablet - take 2 tablets ORAL route every 8 hours for 2 days PRN pain; 60 tablet; sp4 Refills: 0, Product Selection Permitted NIH Stroke Scale - NIH Stroke Score Date: 02/18/2024 Time: 04:21 Total Score = 0 10. Dysarthria (speech clarity - read or repeat words) - 0(Normal) 11. Extinction and Inattention (visual/tactile/auditory/spatial/personal) - 0(No abnormality) 1a. Level of Consciousness (LOC) - 0(Alert) 1b. Level of Consciousness (LOC) (Month \T\ Age) - 0(Both) 1c. LOC Commands (Open \T\ Closes Eyes/Baling Press Operator) - 0(Both) 2. Best Gaze (Lateral Gaze Paresis) - 0(Normal) 3. Visual Field Loss - 0(No visual loss) 4. Facial Palsy - 0(Normal) 5a. Left Arm: Motor (10-second hold) - 0(No drift) 5b. Right Arm: Motor (10-second hold) - 0(No drift) 6a. Left Leg: Motor (5-second hold - always test supine) - 0(No drift) 6b. Right Leg: Motor (5-second hold - always test supine) - 0(No drift) 7. Limb Ataxia (finger/nose \T\ heel/cox - test with eyes open) - 0(Absent) 8. Sensory Loss (pinprick arms/legs/face) - 0(Normal) 9. Best Language: Aphasia (description/naming/reading) - 0(No aphasia) Initials: sp4 Signatures: Dispatcher [employer] Ronit Glover RN RN vc1 Nathan Wahl MD MD sp4 Wilian Sommer RN RN tm6
[2024-02-18] MEDS ORDERED: predniSONE 20 MG TAB ONE (04:24)
[2024-02-18 04:56] VITALS: BP 124/94; TEMP 96.9; O2SAT 100
== END 2024-02-18 04:34 | disposition home or self-care (01) ==
LOC: ER 00:47
DX: M54.12 Radiculopathy, cervical region (principal); G56.92 Unspecified mononeuropathy of left upper limb; E03.9 Hypothyroidism, unspecified; Z79.899 Other long term (current) drug therapy; Z88.0 Allergy status to penicillin
CPT/HCPCS: 81025; 72125; J7512; 96372; 99284

== ENCOUNTER 2024-11-28 19:06 | Emergency (ER) | payer SELFPAY ==
--- OUTSIDE RECORDS SUMMARY | 2024-11-28 19:10 | XMS REPORT | Continuity of Care Document ---
Author Name Unknown Address [address] [facility] [address] [place] [address] [facility] [place] Address [address] [facility] [place] [address] Care Team Providers Care Director Compensation Name Role Phone Loraine Wong NP Primary Care Physician TRAVIS OVIEDO Attending Clinician Unavailable ELLIE HIDALGO Attending Clinician Unavailable Doctor Unassigned, [place] Attending Clinician U Ellie Montoya MD Attending Clinician Ellie Hidalgo MD Attending Clinician Problems Condition Name Condition Details Condition Category Status Onset Date Resolution Date Last Treatment Date Treating Clinician Comments Source Other specified hypothyroi dism Other specified hypothyroi dism Disease Active 2023-08 00:00: 00 [facility] Allergies, Adverse Reactions, Alerts Allergy Name Allergy Type Status Severity Reaction(s) Onset Date Inactive Date Treating Clinician Comments Source Amoxicil arianna Propensi ty to adverse reaction s Active Rash 01-10 00:00: 00 [facility] AMOXICIL ARIANNA DRUG INGREDI Active Rash 01-10 00:00: 00 [facility] Amoxicil arianna - Oral Propensi ty to adverse reaction to drug Active 05-10 00:00: 00 Dheeraj Collins NO KNOWN ALLERGIE S Drug Class Active [facility] Social History Social Habit Start Date Stop Date Quantity Comments Source [facility] function 2024-06-12 00:00:00 2024-06-12 00:00:00 [facility] Sex assigned at 1985 00:00:00 1985 00:00:00 [facility] Smoking Status Start Date Stop Date Source Tobacco smoking consumption unknown [facility] Medications Ordered Medication Name Filled Medication Name Start Date Stop Date Current Medication? Ordering Clinician Indication Dosage Frequency Signature (SIG) Comments Components Source levothyroxi ne 100 mcg tablet 2023-08 0-15 00:00: 00 Yes [id number] 100ug Take 1 tablet by mouth every morning. [facility] meloxicam 15 mg tablet - 00:00: 00 Yes 1mg Dheeraj Collins cyclobenzap rine 10 mg tablet 7- 00:00: 00 Yes 1mg Dheeraj Collins levothyroxi ne 75 mcg tablet 5-15 11:24: 17 06-12 00:00 :00 No [id number] 75ug Take 1 tablet by mouth every morning. [facility] levothyroxi ne 75 mcg tablet 4-24 00:00: 00 Yes 1mcg Dheeraj Collins levothyroxi ne 50 mcg capsule 3-06 00:00: 00 Yes 1mcg Dheeraj Collins TAKE 1 TABLET DAILY. 05-25 00:00: 00 12-26 00:00 :00 No 112 Dheeraj Collins TAKE 1 TABLET TWICE DAILY UNTIL FINISHED. 05-13 00:00: 00 12-26 00:00 :00 No 500 Dheeraj Collins Vital Signs Vital Name Observation Time Observation Value Comments S miranda Systolic blood pressure 2024-06-12 18:46:00 119 mm[Hg] [place] [facility] Diastolic blood pressure 2024-06-12 18:46:00 82 mm[Hg] [place] [facility] Heart rate 2024-06-12 18:46:00 67 /min [facility] Body height 2024-06-12 18:46:00 157.5 cm [facility] Body weight 2024-06-12 18:46:00 69.4 kg [facility] BMI 2024-06-12 18:46:00 27.98 kg/m2 [facility] Oxygen saturation in Arterial blood by Pulse oximetry 2024-06-12 18:46:00 100 /min [facility] Systolic blood pressure 2024-01-11 16:23:00 112 mm[Hg] [facility] Diastolic blood pressure 2024-01-11 16:23:00 79 mm[Hg] [facility] Heart rate 2024-01-11 16:23:00 64 [facility] 2024-01-11 16:23:00 16 /min [facility] Body height 2024-01-11 16:23:00 157.5 cm [facility] Body weight 2024-01-11 16:23:00 68.493 kg [facility] BMI 2024-01-11 16:23:00 27.62 kg/m2 [facility] Oxygen saturation in Arterial blood by Pulse oximetry 2024-01-11 16:23:00 100 /min [facility] BP Systolic 2024-03-23 09:59:00 120 mm[Hg] Step hen F Dennis BP Diastolic 2024-03-23 09:59:00 62 mm[Hg] Renato phen F Dennis Weight Measured 2024-03-23 09:59:00 150.00 pounds Dheeraj F Dennis Height Measured 2024-03-23 09:59:00 63.00 inches Dheeraj F Dennis Body Temperature 2024-03-23 09:59:00 97.90 degrees Dheeraj F Dennis Heart Rate 2024-03-23 09:59:00 72.00 /min Valery en F Dennis Respiratory Rate 2024-03-23 09:59:00 18.00 /min Dheeraj F Dennis BP Systolic 2023-12-21 09:11:00 120 mm[Hg] Step hen F Dennis BP Diastolic 2023-12-21 09:11:00 80 mm[Hg] Renato phen F Dennis Weight Measured 2023-12-21 09:11:00 155.00 pounds Dheeraj F Dennis Height Measured 2023-12-21 09:11:00 63.00 inches Dheeraj F Dennis Body Temperature 2023-12-21 09:11:00 97.50 degrees Dheeraj F Dennis Heart Rate 2023-12-21 09:11:00 81.00 /min Valery en F Dennis Respiratory Rate 2023-12-21 09:11:00 18.00 /min Dheeraj F Dennis Height Measured 2023-11-02 15:03:00 63.00 inches Dheeraj F Dennis Body Temperature 2023-11-02 15:03:00 97.90 degrees Dheeraj F Dennis Heart Rate 2023-11-02 15:03:00 90.00 /min Valery en F Dennis Respiratory Rate 2023-11-02 15:03:00 16.00 /min Dheeraj F Dennis BP Systolic 2023-11-02 15:03:00 120 mm[Hg] Step hen F Dennis BP Diastolic 2023-11-02 15:03:00 70 mm[Hg] Renato phen F Dennis Weight Measured 2023-11-02 15:03:00 154.00 pounds Dheeraj F Dennis BP Systolic 2023-06-24 17:29:00 Step hen F Dennis BP Diastolic 2023-06-24 17:29:00 Renato phen F Dennis Weight Measured 2023-06-24 17:29:00 Dheeraj F Dennis Height Measured 2023-06-24 17:29:00 63.00 inches Dheeraj F Dennis Body Temperature 2023-06-24 17:29:00 Dheeraj F Dennis Heart Rate 2023-06-24 17:29:00 Valery en F Dennis Respiratory Rate 2023-06-24 17:29:00 Dheeraj F Dennis BP Systolic 2023-05-13 09:00:00 123 mm[Hg] Step hen F Dennis BP Diastolic 2023-05-13 09:00:00 85 mm[Hg] Renato phen F Dennis Weight Measured 2023-05-13 09:00:00 160.80 pounds Dheeraj F Dennis Height Measured 2023-05-13 09:00:00 63.00 inches Dheeraj F Dnenis Body Temperature 2023-05-13 09:00:00 98.20 degrees Dheeraj F Dennis Heart Rate 2023-05-13 09:00:00 94.00 /min Valery en F Dennis Respiratory Rate 2023-05-13 09:00:00 Dheeraj F Dennis BP Systolic 2023-05-10 09:19:00 124 mm[Hg] Step hen F Dennis BP Diastolic 2023-05-10 09:19:00 89 mm[Hg] Renato Collins Weight Measured 2023-05-10 09:19:00 159.00 pounds Dheeraj Collins Height Measured 2023-05-10 09:19:00 63.00 inches Dheeraj Collins Body Temperature 2023-05-10 09:19:00 98.10 degrees Dheeraj Collins Heart Rate 2023-05-10 09:19:00 91.00 /min Valery Collins Respiratory Rate 2023-05-10 09:19:00 18.00 /min Dheeraj Collins Procedures Procedure Date / Time Performed Performing Clinicia n Source T-4, FREE-Q 2024-05-15 21:10:00 Ellie Hidalgo [facility] REFERRAL- REQUEST/RESPONSE 2023-12-27 21:16:59 Doctor Unassigned, [place] [facility] Encounters Start Date/Time End Date/Time Encounter Type Admission Type Attending [facility] Care Facility Care Department Encounter ID Source 2025-01-15 14:30:00 2025-01-15 14:30:00 Outpatient R TRAVIS OVIEDO [facility] [id number] [facility] 2024-12-11 10:30:00 2024-12-11 10:30:00 Outpatient R ELLIE HIDALGO [facility] [id number] [facility] 2023-12-27 00:00:00 2024-10-13 02:08:25 Orders Only Doctor Unassigned, [place] Doctor Unassigned, [place] [facility] ..840.114 350.1.13.10 4.2.7.2.686 [id number] [facility] 2024-06-12 14:00:00 2024-06-12 14:36:14 [facility] [id number] 2024-06-12 14:00:00 2024-06-12 14:36:14 Office Visit Ellie Hidalgo [facility] 1..840.114 350.1.13.10 4.2.7.2.686 [id number] [facility] 2024-05-15 00:00:00 2024-05-17 21:03:41 Orders Only Ellie Hidalgo [facility] 1..840.114 350.1.13.10 4.2.7.2.686 [id number] [facility] 2024-05-15 10:30:00 2024-05-15 10:30:00 Outpatient R ELLIE HIDALGO [facility] [id number] [facility] 2024-05-14 00:00:00 2024-05-14 17:29:46 [facility] 1..840.114 350.1.13.10 4.2.7.2.686 [id number] [facility] 2024-03-23 09:57:22 2024-03-23 09:57:22 Outpatient [facility] [id number] Dheeraj Collins 2024-03-23 00:00:00 2024-03-23 00:00:00 Outpatient Visit SFA [id number] Dheeraj Collins 2024-03-19 00:00:00 2024-03-20 10:29:17 Telephone [facility] 1.840.114 350.1.13.10 4.2.7.2.686 [id number] [facility] 2024-02-13 00:00:00 2024-02-13 14:49:22 Telephone [facility] 1..840.114 350.1.13.10 4.2.7.2.686 [id number] [facility] 2024-01-11 11:30:00 2024-01-11 12:27:41 Outpatient R ELLIE HIDALGO [facility] [id number] [facility] 2024-01-11 11:30:00 2024-01-11 12:27:41 [facility] 1.2.840.114 350.1.13.10 4.2.7.2.686 [id number] [facility] 2023-12-21 09:09:01 2023-12-21 09:09:01 Outpatient SFA [facility] [id number] Dheeraj Collins 2023-12-21 00:00:00 2023-12-21 00:00:00 Outpatient Visit [facility] [id number] Dheeraj Collins 2023-12-14 08:17:12 2023-12-14 08:17:12 Outpatient S[facility] [id number] Dheeraj Collins 2023-11-02 15:02:45 2023-11-02 15:02:45 Outpatient S[facility] [id number] Dheeraj Collins 2023-06-27 15:48:46 2023-06-27 15:48:46 Outpatient [facility] [id number] Dheeraj Collins 2023-06-24 17:39:31 2023-06-24 17:39:31 Outpatient [facility] 1027 Dheeraj Collins 2023-05-13 08:54:57 2023-05-13 08:54:57 Outpatient SFA [facility] [id number] Dheeraj Collins 2023-05-10 08:58:23 2023-05-10 08:58:23 Outpatient [facility] 0912 Dheeraj Britney Dennis Results Test Description Test Time Test Comments Results Result Co mments [id number] 21:16:59 Ordered by an unspecified provider.[facility] 2023-12-15 00:00:00* Test Item Value Reference Range Interpretation Comme nts TSH, THIRD GENERATION (test code = 2821) 11.300 UIU/ML Dheeraj Tan AustinTHYROID ANTIBODY GROUP (TPO + TG)2023-12-15 00:00:00* Test Item Value Reference Range Interpretation Comme nts THYROID PEROXIDASE AB (test code = 90429) 410 IU/ML THYROGLOBULIN AB (test code = 661893) 513 IU/ML Dheeraj [id number] 00:00:00* Test Item Value Reference Range Interpretation Comme nts TSH, THIRD GENERATION (test code = 2821) 11.300 UIU/ML Dheeraj CollinsTHYROID ANTIBODY GROUP (TPO + TG)2023-12-15 00:00:00* Test Item Value Reference Range Interpretation Comme nts THYROID PEROXIDASE AB (test code = 92584) 410 IU/ML THYROGLOBULIN AB (test code = 464952) 513 IU/ML Dheeraj Tan AustinTHYROID II PROFILE (TU, T4, T7, TSH)2023-06-28 00:00:00* Test Item Value Reference Range Interpretation Comme nts T-UPTAKE (test code = 2817) 39.0 % THYROX. BIND. CAPAC. (test c ode = 28529) 0.8 T4 (THYROXINE) (test code = 2819) 17.1 UG/DL CORRECTED T4 (FTI) (test cod e = 2820) 21.4 UG/DL TSH, THIRD GENERATION (test code = 2821) 0.021 UIU/[facility] AND [id number] 00:00:00* Test Item Value Reference Range Interpretation Comme nts TSH RFLX FT4 AND FT3 (test c ode = 78055) 0.021 UIU/ML Dheeraj Tan AustinFREE T3 [REFLEX]2023-06-28 00:00:00* Test Item Value Reference Range Interpretation Comme nts FREE T3 (test code = 4273) 6.8 PG/ML Dheeraj Britney AustinFREE T4 (THYROXINE) [REFLEX]2023-06-28 00:00:00* Test Item Value Reference Range Interpretation Comme nts FREE T4 (THYROXINE) (test co de = 2823) 2.68 NG/DL Dheeraj Tan AustinTHYROID II PROFILE (TU, T4, T7, TSH)2023-06-28 00:00:00* Test Item Value Reference Range Interpretation Comme nts T-UPTAKE (test code = 2817) 39.0 % THYROX. BIND. CAPAC. (test c ode = 01655) 0.8 T4 (THYROXINE) (test code = 2819) 17.1 UG/DL CORRECTED T4 (FTI) (test cod e = 2820) 21.4 UG/DL TSH, THIRD GENERATION (test code = 2821) 0.021 UIU/ML Dheeraj Garcia RFLX FT4 AND [id number] 00:00:00* Test Item Value Reference Range Interpretation Comme nts TSH RFLX FT4 AND FT3 (test c ode = 73927) 0.021 UIU/ML Dheeraj CollinsFREE T3 [REFLEX]2023-06-28 00:00:00* Test Item Value Reference Range Interpretation Comme nts FREE T3 (test code = 4273) 6.8 PG/ML Dheeraj CollinsFREE T4 (THYROXINE) [REFLEX]2023-06-28 00:00:00* Test Item Value Reference Range Interpretation Comme nts FREE T4 (THYROXINE) (test co de = 2823) 2.68 NG/DL Dheeraj Garcia RFLX FT4 AND [id number] 00:00:00* Test Item Value Reference Range Interpretation Comme nts TSH RFLX FT4 AND FT3 (test c ode = 66249) 9.710 UIU/ML Dheeraj Garcia, THIRD [id number] 00:00:00* Test Item Value Reference Range Interpretation Comme nts TSH, THIRD GENERATION (test code = 2821) 9.710 UIU/ML Dheeraj CollinsFREE T3 [REFLEX]2023-05-14 00:00:00* Test Item Value Reference Range Interpretation Comme nts FREE T3 (test code = 4273) 2.6 PG/ML Dheeraj CollinsFREE T4 (THYROXINE) [REFLEX]2023-05-14 00:00:00* Test Item Value Reference Range Interpretation Comme nts FREE T4 (THYROXINE) (test co de = 2823) 0.77 NG/DL Dheeraj Garcia RFLX FT4 AND [id number] 00:00:00* Test Item Value Reference Range Interpretation Comme nts TSH RFLX FT4 AND FT3 (test c ode = 23404) 9.710 UIU/ML Dheeraj CollinsTSH, THIRD [id number] 00:00:00* Test Item Value Reference Range Interpretation Comme nts TSH, THIRD GENERATION (test code = 2821) 9.710 UIU/ML Dheeraj CollinsFREE T3 [REFLEX]2023-05-14 00:00:00* Test Item Value Reference Range Interpretation Comme nts FREE T3 (test code = 4273) 2.6 PG/ML Dheeraj CollinsFREE T4 (THYROXINE) [REFLEX]2023-05-14 00:00:00* Test Item Value Reference Range Interpretation Comme nts FREE T4 (THYROXINE) (test co de = 2823) 0.77 NG/DL Dheeraj CollinsPAP TEST, THINPREP, [id number] 16:02:20* Test Item Value Reference Range Interpretation Comme nts SOURCE: (test code = 8001) Cervical/Endoce rvical SLIDES: (test code = 8011) 2 LMP: (test code = 8021) 04/19/2023 SPECIMEN ADEQUACY: (test code = 22201) (NOTE) Satisfactory for evaluation. Endocervical cells/transformation zone component present. INTERPRETATION: (test code = 82206) NILM/NO EPITH. ABNORMALITY;SEE BELOW --- - NEGATIVE FOR INTRAEPITHELIAL LESION OR MALIGNANCY (NILM) ---- OTHER COMMENTS: (test code = 8081) (NOTE) Trichomonas vagi nalis present. Glacial acetic acid added due to blood/mucus in specimen. COMMUNICATIONS BILLING ANALYST : (test code = 8101) Louis SolorioSCT(ASC P),[facility] QC TECHNOLOGIST: (test code = 8111) ADY uL(ASCP) IAC LOCATION: (test code = 20710) (NOTE) Specimens proces sed and interpreted at [facility], [address] [place] [address], , CLIA: [id number] CPT: (test code = 8140) (NOTE) 71735 UNLESS OTH ERWISE INDICATED, COMPUTER AIDED AND COMMUNICATIONS BILLING ANALYST SCREENING PERFORMED. The Pap test is a screening test with an inherent, but low probability of error. Your patient should be reminded to consult you immediately if she experiences any suspicious signs or symptoms, regardless of her Pap test result. An alternate report format containing images or consolidated prior Pap history is available as applicable. PAP TEST, THINPREP, [id number] 00:00:00* Test Item Value Reference Range Interpretation Comme nts SOURCE: (test code = 8001) Cervical/Endocervical SLIDES: (test code = 8011) 2 LMP: (test code = 8021) 04/19/2023 SPECIMEN ADEQUACY: (test code = 62199) (NOTE) INTERPRETATION: (test code = 45338) NILM/NO EPITH. ABNORMALITY;SEE BELOW OTHER COMMENTS: (test code = 8081) (NOTE) COMMUNICATIONS BILLING ANALYST: (test code = 8101) JUAN Bunch(ASCP),IAC QC TECHNOLOGIST: (test code = 8111) ADY Lu(ASCP)IAC LOCATION: (test code = 05139) (NOTE) CPT: (test code = 8140) (NOTE) Dheeraj PérezP TEST, THINPREP, [id number] 00:00:00* Test Item Value Reference Range Interpretation Comme nts SOURCE: (test code = 8001) Cervical/Endocervical SLIDES: (test code = 8011) 2 LMP: (test code = 8021) 04/19/2023 SPECIMEN ADEQUACY: (test code = 49358) (NOTE) INTERPRETATION: (test code = 95685) NILM/NO EPITH. ABNORMALITY;SEE BELOW OTHER COMMENTS: (test code = 8081) (NOTE) COMMUNICATIONS BILLING ANALYST: (test code = 8101) JUAN Bunch(ASCP),IAC QC TECHNOLOGIST: (test code = 8111) ADY Lu(ASCP)IAC LOCATION: (test code = 11708) (NOTE) CPT: (test code = 8140) (NOTE) Dheeraj CollinsTRICHOMONAS, NAAT, [id number] 16:41:37* Test Item Value Reference Range Interpretation Comme nts TRICHOMONAS, NAAT, URINE (test code = 47186) POSITIVE NEGATIVE A Testing is perfo rmed with Sea ANASTASIA 6800/8800 method usingreal-time polymerase chain reaction (PCR) method. UNLESS OTHERWISE INDICATED, ALL TESTING PERFORMED AT [facility] [address] [place] [address] ORNAMENTAL METAL WORKER APPRENTICE: ALLIE QUINTEROS M.D. [place] NUMBER [id number] [facility] [place]. [id number] CT/NG, NAAT, [id number] 13:50:17* Test Item Value Reference Range Interpretation Comme nts CHLAMYDIA, NAAT, URINE (test code = 62253) NEGATIVE NEGATIVE Testing is perfo rmed with Sea ANASTASIA 6800/8800 systems usingreal-time polymerase chain reaction (PCR) method. A negative result does not exclude low level infection, specimensampling error, or collection error. GONORRHEA, NAAT, URINE (test code = 03275) NEGATIVE NEGATIVE Testing is perfo rmed with Sea ANASTASIA 6800/8800 systems usingreal-time polymerase chain reaction (PCR) method. A negative result does not exclude low level infection, specimensampling error, or collection error. HPV HIGH RISK WITH GENOTYPE, [id number] 13:19:23* Test Item Value Reference Range Interpretation Comme nts HPV HIGH RISK INTERP (test code = 98561) NEGATIVE NEGATIVE HPV 16 (test code = 60894) NEGATIVE HPV 18 (test code = 12278) NEGATIVE HPV, HR, OTHER GENOTYPES (test code = 34009) NEGATIVE Testing methodol ogy is real-time PCR [...] TESTING PERFORMED AT [facility] [address] [place] [address] ORNAMENTAL METAL WORKER APPRENTICE: ALLIE QUINTEROS M.D. [place] NUMBER [id number] [facility] [place]. [id number] VAGINAL PATHOGENS DNA [id number] 12:24:57* Test Item Value Reference Range Interpretation Comme nts CATE SPECIES (test code = 92961) NEGATIVE NEGATIVE G. VAGINALIS (test code = 39578) POSITIVE NEGATIVE A T. VAGINALIS (test code = 22415) POSITIVE NEGATIVE A Note: The N-1-1 VPIII Microbial Identification Testis a DNA probe test intended for use in the detectionand identification of Cate species, Gardnerellavaginalis and Trichomonas vaginalis nucleic acid. [id number] 04:55:01* Test Item Value Reference Range Interpretation Comme nts RPR RESULT (test code = 3501) NON-REACTIVE NON-REACTIVE RPR TITER (test code = 3500) NOT INDIC. TITER NOT INDIC. HIV 1/2 4TH GEN, RFLX [id number] 04:20:34* Test Item Value Reference Range Interpretation Comme nts HIV 1/2 4TH GEN, RFLX CONF ( test code = 3514) NON-REACTIVE NON-REACTIVE HEPATITIS PANEL, [id number] 04:20:34* Test Item Value Reference Range Interpretation Comme nts HEPATITIS A IgM (test code = 30485) NON-REACTIVE NON-REACTIVE HEPATITIS B CORE IgM (test code = 4644) NON-REACTIVE NON-REACTIVE HEPATITIS B SURF AG (test code = 2739) NON-REACTIVE NON-REACTIVE HEPATITIS C ANTIBODY (test code = 4675) NON-REACTIVE NON-REACTIVE INTERPRETATION HEPATITIS A: (test code = 2552) (NOTE) Hepatitis A serology shows no evidence of acute hepatitis A. INTERPRETATION HEPATITIS B: (test code = 44964) (NOTE) Hepatitis B serology shows no evidence of acute hepatitis B andno indication of exposure to hepatitis B virus in the previous feliberto eight months. INTERPRETATION HEPATITIS C: (test code = 25173) (NOTE) Hepatitis C serology shows no evidence of exposure to hepatitisC virus at this time. It can take up to 12 months after exposure tothe hepatitis C virus for antibodies to become detectable in the blood in certain patients. HIV 1/2 4TH GEN, RFLX [id number] 00:00:00* Test Item Value Reference Range Interpretation Comme mike HIV 1/2 4TH GEN, RFLX CONF ( test code = 3514) NON-REACTIVE Dheeraj [id number] 00:00:00* Test Item Value Reference Range Interpretation Comme nts RPR RESULT (test code = 3501) NON-REACTIVE RPR TITER (test code = 3500) NOT INDIC. TITER Dheeraj CollinsHPV HIGH RISK WITH GENOTYPE, [id number] 00:00:00* Test Item Value Reference Range Interpretation Comme mike HPV HIGH RISK INTERP (test c ode = 35036) NEGATIVE HPV 16 (test code = 95599) NEGATIVE HPV 18 (test code = 05120) NEGATIVE HPV, HR, OTHER GENOTYPES (te st code = 04082) NEGATIVE PDFE (test code = PDFReport) PDF Dheeraj CollinsVAGINAL PATHOGENS DNA [id number] 00:00:00* Test Item Value Reference Range Interpretation Comme mike CATE SPECIES (test code = 13333) NEGATIVE G. VAGINALIS (test code = 99519) POSITIVE T. VAGINALIS (test code = 16172) POSITIVE Dheeraj CollinsACUTE HEPATITIS [id number] 00:00:00* Test Item Value Reference Range Interpretation Comme nts HEPATITIS A IgM (test code = 59012) NON-REACTIVE HEPATITIS B CORE IgM (test c ode = 4644) NON-REACTIVE HEPATITIS B SURF AG (test co de = 2739) NON-REACTIVE HEPATITIS C ANTIBODY (test c ode = 4675) NON-REACTIVE INTERPRETATION HEPATITIS A: (test code = 2552) (NOTE) INTERPRETATION HEPATITIS B: (test code = 96965) (NOTE) INTERPRETATION HEPATITIS C: (test code = 42161) (NOTE) Dheeraj CollinsCT/NG, TMA, [id number] 00:00:00* Test Item Value Reference Range Interpretation Comme mike CHLAMYDIA, NAAT, URINE (test code = 50861) NEGATIVE GONORRHEA, NAAT, URINE (test code = 82086) NEGATIVE Dheeraj CollinsTRICHOMONAS, NAAT, URINE [ADDED]2023-05-11 00:00:00* Test Item Value Reference Range Interpretation Comme mike TRICHOMONAS, NAAT, URINE (te st code = 17059) POSITIVE Dheeraj CollinsHIV 1/2 4TH GEN, RFLX [id number] 00:00:00* Test Item Value Reference Range Interpretation Comme nts HIV 1/2 4TH GEN, RFLX CONF ( test code = 3514) NON-REACTIVE Dheeraj [id number] 00:00:00* Test Item Value Reference Range Interpretation Comme nts RPR RESULT (test code = 3501) NON-REACTIVE RPR TITER (test code = 3500) NOT INDIC. TITER Dheeraj CollinsHPV HIGH RISK WITH GENOTYPE, [id number] 00:00:00* Test Item Value Reference Range Interpretation Comme mike HPV HIGH RISK INTERP (test c ode = 23616) NEGATIVE HPV 16 (test code = 41629) NEGATIVE HPV 18 (test code = 69229) NEGATIVE HPV, HR, OTHER GENOTYPES (te st code = 75599) NEGATIVE PDFE (test code = PDFReport) PDF Dheeraj CollinsVAGINAL PATHOGENS DNA [id number] 00:00:00* Test Item Value Reference Range Interpretation Comme mike CATE SPECIES (test code = 05135) NEGATIVE G. VAGINALIS (test code = 50221) POSITIVE T. VAGINALIS (test code = 83339) POSITIVE Dheeraj CollinsACUTE HEPATITIS [id number] 00:00:00* Test Item Value Reference Range Interpretation Comme nts HEPATITIS A IgM (test code = 18291) NON-REACTIVE HEPATITIS B CORE IgM (test c ode = 4644) NON-REACTIVE HEPATITIS B SURF AG (test co de = 2739) NON-REACTIVE HEPATITIS C ANTIBODY (test c ode = 4675) NON-REACTIVE INTERPRETATION HEPATITIS A: (test code = 2552) (NOTE) INTERPRETATION HEPATITIS B: (test code = 67500) (NOTE) INTERPRETATION HEPATITIS C: (test code = 85060) (NOTE) Dheeraj CollinsCT/NG, TMA, [id number] 00:00:00* Test Item Value Reference Range Interpretation Comme mike CHLAMYDIA, NAAT, URINE (test code = 68681) NEGATIVE GONORRHEA, NAAT, URINE (test code = 11535) NEGATIVE Dheeraj CollinsTRICHOMONAS, NAAT, URINE [ADDED]2023-05-11 00:00:00* Test Item Value Reference Range Interpretation Comme nts TRICHOMONAS, NAAT, URINE (te st code = 77405) POSITIVE Dheeraj Collins Notes Date/Time Note Provider Source 2024-05-14 17:28:46 Instruction was given to patient for her to come to clinic to [employer] lab and thyroid US order. We will reschedule APPT to later time Ellie Hidalgo MD Division of Endocrinology and Metabolism IM-ENDOCRINOLOGY,DIABETE S & METABOLISM STAFF [facility] 2024-05-14 15:39:50 Spoke with patient, waiting on response from provider Maria Elena Robledo RN [facility] 2024-05-14 13:56:39 Pt following up on appt being needed tomorrow due to her not having the ultrasound. Pt also following up on correct orders being sent to [facility]. Pls advise. Benito Saavedra [facility] 2024-05-14 10:51:55 Please advise, Pt states she has been unable to completed thyroid ultrasound. Pt requesting advisement on if her appointment needs to be rescheduled Chato Hurst RN [facility] 2024-05-14 08:50:52 Spoke with the patient and she stated she has not been able to get the ultrasound done, [facility] in [place] has not receive the correct ultrasound orders for neck thyroid. Pt is requesting a call from 's nurse. Patient wants to know if she needs to R/S tomorrow's appointment with Dr. Hidalgo. Please advise. [facility] Dheeraj TanMaryan Dennis [facility]2024-07-23 10:29:11 Awaiting forms Chato Hurst [place] [id number] 12:46:33 Adria Keller is a 38 year old female Pt is calling for a status update of the referral for the thyroid ultra sound. States the forms are being faxed over again today. Please advise [place] [id number] 14:49:16 Awaiting forms T [facility]st [id number] 13:34:01 Pt states that [facility] has faxed forms to the office, regarding additional information to schedule an Ultrasound of the Thyroid. Pt is calling to check the status of this being received and completed. Pls advise. [place] [id number] 11:30:00 Addended by: ELLIE HIDALGO MD on: 02/10/2024 12:43 AM Modules accepted: Level of Service [facility]2024-04-24 00:00:00 Dheeraj [facility]
[2024-11-28 20:34] LABS: Specific Gravity 1.024 (1.005-1.030); Sqamous Epithelial <5 /HPF (None Seen); Urine Bacteria <20 /HPF (<20); Urine Bilirubin 2+ (Negative); Urine Blood 2+ (Negative); Urine Clarity Extremely Turbid (Clear); Urine Color Dark-Yellow (Yellow); Urine Crystals Unidentified Moderate /HPF (None Seen); Urine Culture Reflex Order REFLEXED; Urine Glucose NEGATIVE (Negative); Urine Ketones NEGATIVE (Negative); Urine Microscopic Reflex YN ORDER UMIC; Urine Mucus 1+ /HPF (None Seen); Urine Nitrite 1+ (Negative); Urine Protein 2+ (Negative); Urine RBC >50 /HPF (None Seen); Urine Urobilinogen 2+ (Normal); Urine WBC >50 /HPF (<5); Urine WBC Clump Moderate /HPF (None Seen)
--- NOTE | 2024-11-28 20:39 | EDPHYS ---
Physician Documentation [facility] Name: Brianna Armstrong Age: 39 yrs Sex: Female : 1985 Arrival Date: 11/28/2024 Time: 19:06 Bed 12 Private MD: ED Physician Wagner Vega HPI: 11/28 22:45 This 39 yrs old Female presents to ER via Ambulatory with complaints of Urinary Problem.kb 22:45 Pt is a 39 year old female who presents for frequency, urinating small amounts, kb urgency, and bladder spasms with urination that started 4 days ago. States she has been using AZO but it isn't helping. States symptoms got worse today so she decided to come in for evaluation. Historical: - Allergies: 19:25 PENICILLINS; iw - Home Meds: 19:25 levothyroxine 75 mcg tablet daily [Active]; iw - PMHx: 19:25 Hypothyroidism; iw - PSHx: 19:25 tubal; iw - Immunization history:: Adult Immunizations not up to date. - Infectious Disease History:: Denies. - Social history:: Smoking status: Reported history of juuling and/or vaping. ROS: 22:43 Constitutional: As per HPI kb Exam: 22:43 Constitutional: This is a well developed, well nourished patient who is awake, alert, kb and in no acute distress. Head/Face: Normocephalic, atraumatic. ENT: Moist Mucous membranes Cardiovascular: Regular rate Respiratory: Respirations even and unlabored. No increased work of breathing. Talking in full sentences Abdomen/GI: Soft, non-tender. No distention Back: No spinal tenderness. No costovertebral tenderness. Full range of motion. Skin: Warm, dry with normal turgor. Normal color. MS/ Extremity: Pulses equal, no cyanosis. Neurovascular intact. Full, normal range of motion. Neuro: Awake and alert, GCS 15, oriented to person, place, time, and situation. Vital Signs: 19:24 BP 130 / 103; Pulse 83; Resp 19; Temp 97.8; Pulse Ox 97% on R/A; Weight 66.22 kg; iw Height 5 ft. 2 in. ; 20:33 BP 113 / 90; Pulse 78; Resp 16; Temp 98.2; Pulse Ox 98% on R/A; dd2 21:06 BP 117 / 85; Pulse 81; Resp 16; Pulse Ox 99% on R/A; dd2 19:24 Body Mass Index 26.70 (66.22 kg, 157.48 cm) iw [place] Coma Score: 20:28 Eye Response: spontaneous(4). Motor Response: obeys commands(6). Verbal Response: dd2 oriented(5). Total: 15. MDM: 19:22 Medical Screening Exam initiated kb 22:44 Differential diagnosis: UTI, kidney stone, pyelonephritis. Data reviewed: vital signs, kb nurses notes. Test considered but Not performed: Labs: cbc, cmp considered but pt has not been vomiting, afebrile, nontoxic in [place]. CT: ct considered but pt has no CVA or abd tenderness. Counseling: I had a detailed discussion with the patient and/or guardian regarding the historical points, exam findings, and any diagnostic results supporting the discharge/admit diagnosis, lab results, the need for outpatient follow up, a family practitioner, to return to the emergency department if symptoms worsen or persist or if there are any questions or concerns that arise at home. 11/28 19:26 Order name: Test, Urine; Complete Time: 20:37 kb 11/28 19:26 Order name: Urinalysis w/ reflexes; Complete Time: 20:37 kb 11/28 20:38 Order name: Urine Culture EDMS Administered Medications: 21:05 Drug: Macrobid PO 100 mg PO once; administer with food Route: PO; dd2 21:08 Follow up: Response: Medication administered at discharge. dd2 Disposition: 11/29 07:46 Co-signature as Attending Physician, Wagner Vega MD I reviewed the patient's care rn provided by the Advanced Practice Provider and agree with the diagnosis and treatment plan. Disposition Summary: 11/28/24 20:38 Discharge Ordered Notes: Location: Home kb Condition: Stable kb Diagnosis - UTI/ Urinary tract infection, site not specified kb Followup: kb - With: Emergency Department - When: As needed - Reason: Worsening of condition Followup: kb - With: Private Physician - When: 2 - 3 days - Reason: Recheck today's complaints, Continuance of care, Re-evaluation by your physician Discharge Instructions: - Discharge Summary Sheet kb - Urinary Tract Infection, Adult, [id number] kb Forms: - Medication Reconciliation Form kb - Antibiotic Education kb - Prescription Opioid Use kb - Patient Portal Instructions kb - Leadership Thank You Letter kb Prescriptions: - Macrobid 100 mg Oral Capsule - take 1 capsule ORAL route every 12 hours for 10 days; 20 capsule; Refills: 0, kb Product Selection Permitted Signatures: Dispatcher [employer] Charmaine An, OZIEL-C OZIEL-Keiry Garcia RN RN iw Nieto, Roman, MD MD rn DAVIS, DIANA, RN RN dd2
--- NOTE | 2024-11-28 20:39 | ER ---
Nurse's Notes [facility] Name: Brianna Armstrong Age: 39 yrs Sex: Female : 1985 Arrival Date: 11/28/2024 Time: 19:06 Bed 12 Private MD: Diagnosis: UTI/ Urinary tract infection, site not specified Presentation: 11/28 19:24 Chief complaint: Patient states: feels like she has a bad UTI, taking AZOs. Coronavirus iw screen: At this time, the client does not indicate any symptoms associated with coronavirus-19. Ebola Screen: No symptoms or risks identified at this time. Initial Sepsis Screen: Does the patient meet any 2 criteria? No. Patient's initial sepsis screen is negative. Does the patient have a suspected source of infection? No. Patient's initial sepsis screen is negative. Risk Assessment: Do you want to hurt yourself or someone else? Patient reports no desire to harm self or others. 19:24 Method Of Arrival: Ambulatory iw 19:24 Acuity: SKY 4 iw 19:24 Onset of symptoms was November 24, 2024. iw Historical: - Allergies: 19:25 PENICILLINS; iw - Home Meds: 19:25 levothyroxine 75 mcg tablet daily [Active]; iw - PMHx: 19:25 Hypothyroidism; iw - PSHx: 19:25 tubal; iw - Immunization history:: Adult Immunizations not up to date. - Infectious Disease History:: Denies. - Social history:: Smoking status: Reported history of juuling and/or vaping. Screenin:28 [facility] ED Fall Risk Assessment (Adult) History of falling in the last 3 months, dd2 including since admission No falls in past 3 months (0 pts) Confusion or Disorientation No (0 pts) Intoxicated or Sedated No (0 pts) Impaired Gait No (0 pts) Mobility Assist Device Used No (0 pt) Altered Elimination No (0 pt) Score/Fall Risk Level 0 - 2 = Low Risk Oriented to surroundings, Maintained a safe environment, Educated pt \T\ family on fall prevention, incl call for assistance when getting out of bed, Assessed \T\ reinforced patient's understanding of fall precautions, Hourly rounding (assess needs \T\ fall precautionary measures) done. Abuse screen: Denies threats or abuse. Denies injuries from another. Nutritional screening: No deficits noted. Tuberculosis screening: No symptoms or risk factors identified. Assessment: 20:28 General: Appears in no apparent distress. Behavior is calm, cooperative, appropriate dd2 for age. Pain: Complains of pain in suprapubic area Pain does not radiate. Pain currently is 2 out of 10 on a pain scale. Aggravated by URINATING. Neuro: No deficits noted. Mayes Agitation-Sedation Scale (RASS): 0 - Alert and Calm Level of Consciousness is awake, alert, obeys commands, Oriented to person, place, time, situation, Appropriate for age. Cardiovascular: No deficits noted. Patient's skin is warm and dry. Respiratory: No deficits noted. Airway is patent Respiratory effort is even, unlabored, Respiratory pattern is regular, symmetrical. GI: No deficits noted. No signs and/or symptoms were reported involving the gastrointestinal system. Abdomen is non-distended, Abd is soft and non tender X 4 quads. : Reports pain in suprapubic area with urination, urgency, urinary frequency. EENT: No deficits noted. No signs and/or symptoms were reported regarding the EENT system. Derm: No deficits noted. No signs and/or symptoms reported regarding the dermatologic system. Musculoskeletal: No deficits noted. No signs and/or symptoms reported regarding the musculoskeletal system. Circulation, motion, and sensation intact. Range of motion: intact in all extremities. Vital Signs: 19:24 BP 130 / 103; Pulse 83; Resp 19; Temp 97.8; Pulse Ox 97% on R/A; Weight 66.22 kg; iw Height 5 ft. 2 in. ; 20:33 BP 113 / 90; Pulse 78; Resp 16; Temp 98.2; Pulse Ox 98% on R/A; dd2 21:06 BP 117 / 85; Pulse 81; Resp 16; Pulse Ox 99% on R/A; dd2 19:24 Body Mass Index 26.70 (66.22 kg, 157.48 cm) iw [place] Coma Score: 20:28 Eye Response: spontaneous(4). Motor Response: obeys commands(6). Verbal Response: dd2 oriented(5). Total: 15. ED Course: 19:08 Patient arrived in ED. im 19:22 Charmaine Santillan FNP-C is [facility]. kb 19:22 Wagner Vega MD is Attending Physician. kb 19:25 Triage completed. iw 20:15 THEO LANDON, RN is Primary Nurse. dd2 20:28 Patient has correct armband on for positive identification. Bed in low position. Call dd2 light in reach. Side rails up X 1. Client placed on continuous cardiac and pulse oximetry monitoring. NIBP monitoring applied. Door closed. Noise minimized. Warm blanket given. Pillow given. Verbal reassurance given. 20:28 No provider procedures requiring assistance completed. Urine collected: clean catch dd2 specimen, cloudy. Patient did not have IV access during this emergency room visit. Patient maintains SpO2 saturation greater than 95% on room air. 21:06 Provided Education on: D/C EDUCATION, RX AND F/U. dd2 21:07 Arm band placed on. dd2 Administered Medications: 21:05 Drug: Macrobid PO 100 mg PO once; administer with food Route: PO; dd2 21:08 Follow up: Response: Medication administered at discharge. dd2 Medication: 20:28 VIS not applicable for this client. dd2 Outcome: 20:38 Discharge ordered by . kb 21:06 Discharged to home ambulatory, dd2 21:06 Condition: stable 21:06 Discharge instructions given to patient, 21:07 Instructed on discharge instructions, follow up and referral plans. medication usage, dd2 Demonstrated understanding of instructions, follow-up care, medications, Prescriptions given X 1, 21:07 Patient left the ED. dd2 Addendum: 12/02/2024 13:00 Addendum: Culture Results: Positive urine culture. Bacteria is resistant to, has i w intermediate sensitivity, or is not tested against prescribed antibiotics. Report given to SIMA for further evaluation and then to sdv pilot/navigator/dds operator for follow up with patient. Phone call Attempt #1 pt did not answer, left voice mail with call back number. Signatures: Charmaine Santillan, OZIEL-C OZIEL-Keiry Garcia, TAAR RN iw Samantha Frazier DIANA, RN RN dd2 Corrections: (The following items were deleted from the chart) 04 19:26 19:24 BP 130 / 103; Pulse 83bpm; Resp 19bpm; Pulse Ox 97% RA; Temp 97.8F; iw iw
[2024-11-28] MEDS ORDERED: NITROFURAN MACRO 100 MG CAP PO ONE (20:56)
[2024-11-28 21:28] VITALS: TEMP 98.2
[2024-11-28 21:29] VITALS: BP 117/85; O2SAT 99
== END 2024-11-28 21:07 | disposition home or self-care (01) ==
LOC: ER 19:06
DX: N39.0 Urinary tract infection, site not specified (principal); E03.9 Hypothyroidism, unspecified; F17.290 Nicotine dependence, other tobacco product, uncomplicated; Z88.0 Allergy status to penicillin
CPT/HCPCS: 81001; 81025; 87077; 87086; 87088; 87186; 99284